=== PATIENT | male | born 1970 | race African-American/Black ===

== ENCOUNTER 2019-06-24 15:23 | Emergency (ER) | payer OTHER ==
[~2019-06-24] VITALS: Ht 180.3 cm; Wt 124.3 kg
[~2019-06-24 15:23] MED LIST: AMOXICILLIN500 M1 PO; ASPIR 8181 MG PO; FLEXERIL PO; IBUPROFEN 800800 M1 PO; IBUPROFEN 800800 MG PO; NORCO 5-325 TA1 EACH PO; PREDNISONE 10 M10 MG PO; TRAMADOL 50 MG50 MG PO; ULTRAM 50MG TAB50 MG PO; ZPAK PO
[2019-06-24] MEDS ORDERED: CYCLOBENZAPRINE5 MG PO (18:18)
[2019-06-24] MEDS ORDERED: ASPERCREME1 EACH TRANSDERM (18:18)
[2019-06-24] MEDS ORDERED: MOBIC7.5 MG PO (18:18)
[2019-06-24 18:39] VITALS: BP 145/96
== END 2019-06-24 18:33 | disposition home or self-care (01) ==
LOC: ER 15:23
DX: M25.511 Pain in right shoulder (principal); M25.561 Pain in right knee; M54.5 Low back pain; M54.2 Cervicalgia; F17.210 Nicotine dependence, cigarettes, uncomplicated; V49.49XA Driver injured in collision with other motor vehicles in traffic accident, initial encounter; Y93.89 Activity, other specified; Y92.410 Unspecified street and highway as the place of occurrence of the external cause; Y99.8 Other external cause status